=== PATIENT | female | born 1985 | race Caucasian/White ===

== ENCOUNTER 2019-06-08 14:37 | Emergency (ER) | payer OTHER, SELFPAY ==
[2019-06-08 14:55] VITALS: BP 147/107; PULSE 83; RESP 21; TEMP 36.8; O2SAT 93; BMI 39.4
[2019-06-08 15:18] LABS: Add Manual Diff / Slide Review NO; Basophils Absolute Auto 0 /uL (0-100); Basophils Percent Auto 0.2 % (0-2); Eosinophils Absolute Auto 0 /uL (0-450); Hematocrit 41.6 % (36-46); Hemoglobin 14.4 g/dL (12.0-16.0); Lymphocytes Absolute Auto 3300 /uL (1100-4500); Lymphocytes Percent Auto 39.2 % (25-40); Mean Corpuscular HGB Conc 34.6 % (30-36); Mean Corpuscular Hemoglobin 29.2 PG (26-34); Mean Corpuscular Volume 84.5 fL (80-100); Monocytes Absolute Auto 700 /uL (0-900); Monocytes Percent Auto 7.7 % (3-14); Neutrophils Absolute Auto 4500 /uL (1500-7000); Neutrophils Percent Auto 52.9 % (50-75); Platelet Count 328 X10^3/uL (150-400); Red Blood Cell Count 4.92 X10^6/uL (4.0-5.2); Red Cell Distribution Width 13.5 % (11.6-14.8); White Blood Cell Count 8.5 X10^3/uL (4.5-11.0)
[2019-06-08 15:30] LABS: Alanine Aminotransferase 19 IU/L (9-52); Albumin 4.2 g/dL (3.5-5.0); Albumin Globulin Ratio 1.2 (1.0-2.8); Alkaline Phosphatase 66 U/L (38-126); Aspartate Aminotransferase 20 IU/L (14-36); BUN Creatinine Ratio 15.7 (6-22); Bilirubin Total 0.5 mg/dL (0.2-1.3); Blood Urea Nitrogen 11 mg/dL (7-17); Calcium 8.9 mg/dL (8.4-10.2); Carbon Dioxide 21 mmol/L (22-32); Chloride 104 mmol/L (98-107); Estimated Glomerular Filt Rate > 60.0 mL/min (>60); Globulin 3.5 g/dL (1.7-4.1); Glucose 84 mg/dL (70-100); HEMOLYSIS < 15 (0-50); Lipase 21 U/L (23-300); Potassium 4.1 mmol/L (3.4-5.1); Sodium 136 mmol/L (137-145); Total Protein 7.7 g/dL (6.3-8.2)
[2019-06-08] MEDS: ONDANSETRON 4 MG/2 ML INJ IV (15:33)
--- NOTE | 2019-06-08 15:51 | DI.RAD.S_ITS ---
PROCEDURE: XR CHEST 2V INDICATIONS: abdomen pain, hx of asthma, productive cough TECHNIQUE: 2 views of the chest were acquired. COMPARISON: None. FINDINGS: Surgical changes and devices: Spinal electrodes Lungs and pleura: Lungs are clear. No pleural effusions or pneumothorax. Mediastinum: Mediastinal contours are normal. Heart size is normal. Bones and chest wall: No suspicious bony abnormalities. Soft tissues appear unremarkable. IMPRESSION: No acute disease. Dictated by: Ren Beasley M.D. on 06/08/2019 at 16:36 Approved by: Ren Beasley M.D. on 06/08/2019 at 16:37
[2019-06-08] MEDS: DICYCLOMINE 10 MG CAPSULE 20 MG PO (15:59)
[2019-06-08] MEDS: KETOROLAC 60 MG/2 ML VIAL 30 MG IV (16:00)
--- NOTE | 2019-06-08 22:28 | ED.FEMALEGU ---
HPI - Female Genitourinary <CAMILO Crump - Last Filed: 06/08/19 22:49> General Chief complaint: Urogenital-Female Stated complaint: lower right pain nausea Time Seen by Provider: 06/08/19 14:49 Source: patient Mode of arrival: ambulatory Limitations: no limitations History of Present Illness HPI Narrative: This is a 33-year-old female, smoker, with a history of asthma who presents with chief complain of right lower quadrant pain that had started 2 days ago. The patient reports frequent urination, dysuria, spotting small amount of blood when she wipes after voiding, right flank pain and odorous urine. She also complained of swelling to her lower extremities, nausea. Patient denies fever/chills. Patient reports there is no concerns for STIs. Reports decreased appetite. According to patient she was evaluated [facility] last night and had ultrasound done on her abdomen and pelvis which was negative. She reports she had given medications for bladder infection which she had not started. She reports that her pain is worse today and more constant. The past medical record from [facility] was requested after talking with patient. Related Data Home Medications Medication Instructions Recorded Confirmed albuterol sulfate 3 ml INHALATION PRN PRN 06/08/19 06/08/19 albuterol sulfate [ProAir HFA] 1 dose INHALATION PRN PRN 06/08/19 06/08/19 epinephrine [EpiPen 2-Alejandro] 0.3 ml IM PRN PRN 06/08/19 06/08/19 fluticasone propion-salmeterol 1 puff INHALATION BID 06/08/19 06/08/19 [Advair HFA] loratadine 10 mg PO DAILY 06/08/19 06/08/19 montelukast 10 mg PO DAILY 06/08/19 06/08/19 tiotropium bromide [Spiriva 1 puff INHALATION DAILY 06/08/19 06/08/19 Respimat] Allergies Allergy/AdvReac Type Severity Reaction Status Date / Time zolpidem [From Ambien] AdvReac Verified 06/08/19 14:58 Review of Systems <CAMILO Crump - Last Filed: 06/08/19 22:49> Review of Systems General: See HPI HEENT: Denies sinus pain, ear pain, sore throat, difficulty swallowing, dizziness. Respiratory: Denies dyspnea, cough, wheezing, hemoptysis, sputum. Cardiovascular: Denies chest pain, palpitations, orthopnea, edema. Gastrointestinal: See HPI : See HPI Musculoskeletal: Reports right flank pain and chronic left back pain. Denies weakness, joint pain or bony pain other areas. Skin: Denies rash, skin lesions, or other. Neurologic: Denies weakness, headache, numbness, change in speech, confusion, seizures, incoordination. Psychiatric: No concerning psychosocial issues. 12-point review of systems is negative except for those stated above. PFSH <CAMILO Crump - Last Filed: 06/08/19 22:49> Medical History (Updated 06/08/19 @ 22:37 by CAMILO Crump) Chronic back pain (Acute) Degenerative joint disease (DJD) of lumbar spine (Acute) Spinal cord stimulator status (Acute) Spinal stenosis (Acute) Endometriosis (Chronic) Surgical History (Updated 06/08/19 @ 22:37 by CAMILO Crump) H/O spinal fusion (Chronic) History of cholecystectomy (Chronic) S/P T&A (status post tonsillectomy and adenoidectomy) (Chronic) Social History Smoking Status: Current every day smoker Social History Smoking Status: Current every day smoker Exam <CAMILO Crump - Last Filed: 06/08/19 22:49> Narrative Exam Narrative: GEN: Alert, oriented x 3, well appearing and nourished, and in no acute distress. Head: Normal cephalic, atraumatic. No scalp or temporal tenderness, palpable mass or rash. EYES: Pupils are equal, round, and reactive to light and accommodation. Extraocular muscles are intact bilaterally. There is no subconjunctival hemorrhage, exudate and sclera non-icteric. ENT: Hearing grossly intact. Nose without bleeding, purulent discharge. Mucous membrane moist, no mucosal lesion. Throat without erythema, tonsillar hypertrophy or exudate. Uvula in midline, airway patent. Neck: Trachea in midline. No JVD, non-tender without lymphadenopathy. No masses or thyroid megaly. Supple, non-tender and no meningeal signs. CARDIAC: Normal regular rate and rhythm without murmurs, gallops, or rubs. No chest wall tenderness. No peripheral edema, cyanosis or pallor. Capillary refill is less than 2 seconds. RESPIRATORY: Faint wheezing throughout all lobes. No cough, rales, or rhonchi. No stridor, respiratory distress, increase work of breathing, or accessary muscle used. ABD: R upper abdomen and RLQ tender to palpate. Abdomen soft and non-distended. No guarding or rebound tenderness to palpate. Bowel sounds are normal in all 4 quadrants. There is no palpable masses or organomegaly. EXT: Full painless ROM of all extremities with no loss of sensation, strength, effusion or no pitting edema noted in lower extremities. SKIN: Warm, dry, normal color for patient. No erythema, lesions or rash over visible areas. BACK: Nontender without deformity or crepitance. Reports R CVA tenderness to percuss. NEUROLOGICAL: Alert and oriented to place, time and person. Sensation and motor function intact bilaterally. No facial droops, dysphasia. PSYCHIATRIC: Good judgement and reason, without hallucinations, abnormal affect or abnormal behaviors during the examination. Patient is not suicidal. Initial Vital Signs Initial Vital Signs: Vital Signs Temperature 98.3 F 06/08/19 14:55 Pulse Rate 83 06/08/19 14:55 Respiratory Rate 21 06/08/19 14:55 Blood Pressure 147/107 H 06/08/19 14:55 Pulse Oximetry 93 06/08/19 14:55 <Flower Rivas DO - Last Filed: 06/09/19 08:23> Initial Vital Signs Initial Vital Signs: Vital Signs Temperature 98.3 F 06/08/19 14:55 Pulse Rate 83 06/08/19 14:55 Respiratory Rate 21 06/08/19 14:55 Blood Pressure 147/107 H 06/08/19 14:55 Pulse Oximetry 93 06/08/19 14:55 Course <CAMILO Crump - Last Filed: 06/08/19 22:49> Orders Ordered: Discontinued Medications Dicyclomine HCl (Bentyl) 20 mg PO NOW ONE Stop: 06/08/19 15:45 Last Admin: 06/08/19 15:59 Dose: 20 mg Ketorolac Tromethamine (Toradol) 30 mg IV NOW ONE Stop: 06/08/19 15:45 Last Admin: 06/08/19 16:00 Dose: 30 mg Ondansetron HCl (Zofran) 4 mg IV NOW ONE Stop: 06/08/19 15:06 Last Admin: 06/08/19 15:33 Dose: 4 mg Vital Signs - 8 hr 06/08/19 14:55 Temperature 98.3 F Pulse Rate 83 Respiratory Rate 21 Blood Pressure 147/107 H Pulse Oximetry 93 <Flower Rivas DO - Last Filed: 06/09/19 08:23> Orders Ordered: Discontinued Medications Dicyclomine HCl (Bentyl) 20 mg PO NOW ONE Stop: 06/08/19 15:45 Last Admin: 06/08/19 15:59 Dose: 20 mg Ketorolac Tromethamine (Toradol) 30 mg IV NOW ONE Stop: 06/08/19 15:45 Last Admin: 06/08/19 16:00 Dose: 30 mg Ondansetron HCl (Zofran) 4 mg IV NOW ONE Stop: 06/08/19 15:06 Last Admin: 06/08/19 15:33 Dose: 4 mg Vital Signs - 8 hr 06/08/19 14:55 Temperature 98.3 F Pulse Rate 83 Respiratory Rate 21 Blood Pressure 147/107 H Pulse Oximetry 93 MDM - Female Genitourinary <CAMILO Crump - Last Filed: 06/08/19 22:49> Differential Diagnosis Likely urinary tract infection and other (kidney infection, appendicitis, oavarian cyst) Medical Records Attestation: I reviewed the patient's medical records. Lab Data Attestation: I reviewed the patient's lab results. Result diagrams: 06/08/19 15:05 06/08/19 15:05 Lab Results 06/08/19 06/08/19 Range/Units 15:05 15:05 WBC 8.5 (4.5-11.0) X10^3/uL RBC 4.92 (4.0-5.2) X10^6/uL Hgb 14.4 (12.0-16.0) g/dL Hct 41.6 (36-46) % MCV 84.5 (80-100) fL MCH 29.2 (26-34) PG MCHC 34.6 (30-36) % RDW 13.5 (11.6-14.8) % Plt Count 328 (150-400) X10^3/uL Neut % (Auto) 52.9 (50-75) % Lymph % (Auto) 39.2 (25-40) % Barnes % (Auto) 7.7 (3-14) % Eos % (Auto) 0.0 L (2-4) % Baso % (Auto) 0.2 (0-2) % Neut # (Auto) 4500 (5361-0186) /uL Lymph # (Auto) 3300 (8548-5016) /uL Barnes # (Auto) 700 (0-900) /uL Eos # (Auto) 0 (0-450) /uL Baso # (Auto) 0 (0-100) /uL Sodium 136 L (137-145) mmol/L Potassium 4.1 (3.4-5.1) mmol/L Chloride 104 (98-107) mmol/L Carbon Dioxide 21 L (22-32) mmol/L BUN 11 (7-17) mg/dL Creatinine 0.70 (0.52-1.04) mg/dL Estimated GFR > 60.0 (>60) mL/min BUN/Creatinine Ratio 15.7 (6-22) Glucose 84 (70-100) mg/dL Calcium 8.9 (8.4-10.2) mg/dL Total Bilirubin 0.5 (0.2-1.3) mg/dL AST 20 (14-36) IU/L ALT 19 (9-52) IU/L Alkaline Phosphatase 66 (38-126) U/L Total Protein 7.7 (6.3-8.2) g/dL Albumin 4.2 (3.5-5.0) g/dL Globulin 3.5 (1.7-4.1) g/dL Albumin/Globulin Ratio 1.2 (1.0-2.8) Lipase 21 L (23-300) U/L Point of Care Testing Test Results Negative Urine Dip Bedside Urine Glucose Negative Bedside Urine Bilirubin - Negative Bedside Urine Ketone - Negative Urine Specific [place] 1.015 Bedside Urine Occult Blood +/- Bedside Urine pH 6.0 Bedside Urine Protein - Negative Bedside Urine Urobilinogen - Negative Bedside Urine Nitrite - Negative Bedside Urine Leukocytes - Negative Esterase MDM Narrative Medical decision making narrative: This is a 33-year-old female came in with right lower quadrant pain and right flank pain with urinary symptoms. I received the patient's past medical record from [facility] from last night. The record indicates unremarkable findings per abdominal pelvis ultrasound and she also had CT of abdomen and pelvis. Her urine was not infectious but she was diagnosed with Pyridium for urinary discomfort which she had not used. Her lab test was unremarkable. She was discharged with Percocet and Zofran for pain management and nausea. Today's blood test also unremarkable for CBC and CMP including lipase. The patient reports due to her asthma problem she has productive cough daily. Chest x-ray with negative findings today. I discussed with patient in length that since she had extensive workup done last night additional ultrasound or CT scan are being deferred due to extensive radiation exposure from CT test with unremarkable blood test. Patient was medicated with IV Toradol are, Zofran, and oral Bentyl while in ED. Patient reports her nausea has improved and as well as discomfort. Return precautions were discussed with the patient and patient was advised to follow with her primary care physician. The patient agrees with treatment plan and informed the cause for her abdominal pain is not evident. <Flower Rivas, DO - Last Filed: 06/09/19 08:23> Lab Data Lab Results 06/08/19 06/08/19 Range/Units 15:05 15:05 WBC 8.5 (4.5-11.0) X10^3/uL RBC 4.92 (4.0-5.2) X10^6/uL Hgb 14.4 (12.0-16.0) g/dL Hct 41.6 (36-46) % MCV 84.5 (80-100) fL MCH 29.2 (26-34) PG MCHC 34.6 (30-36) % RDW 13.5 (11.6-14.8) % Plt Count 328 (150-400) X10^3/uL Neut % (Auto) 52.9 (50-75) % Lymph % (Auto) 39.2 (25-40) % Barnes % (Auto) 7.7 (3-14) % Eos % (Auto) 0.0 L (2-4) % Baso % (Auto) 0.2 (0-2) % Neut # (Auto) 4500 (8894-5879) /uL Lymph # (Auto) 3300 (6947-9840) /uL Barnes # (Auto) 700 (0-900) /uL Eos # (Auto) 0 (0-450) /uL Baso # (Auto) 0 (0-100) /uL Sodium 136 L (137-145) mmol/L Potassium 4.1 (3.4-5.1) mmol/L Chloride 104 (98-107) mmol/L Carbon Dioxide 21 L (22-32) mmol/L BUN 11 (7-17) mg/dL Creatinine 0.70 (0.52-1.04) mg/dL Estimated GFR > 60.0 (>60) mL/min BUN/Creatinine Ratio 15.7 (6-22) Glucose 84 (70-100) mg/dL Calcium 8.9 (8.4-10.2) mg/dL Total Bilirubin 0.5 (0.2-1.3) mg/dL AST 20 (14-36) IU/L ALT 19 (9-52) IU/L Alkaline Phosphatase 66 (38-126) U/L Total Protein 7.7 (6.3-8.2) g/dL Albumin 4.2 (3.5-5.0) g/dL Globulin 3.5 (1.7-4.1) g/dL Albumin/Globulin Ratio 1.2 (1.0-2.8) Lipase 21 L (23-300) U/L Point of Care Testing Test Results Negative Urine Dip Bedside Urine Glucose Negative Bedside Urine Bilirubin - Negative Bedside Urine Ketone - Negative Urine Specific [place] 1.015 Bedside Urine Occult Blood +/- Bedside Urine pH 6.0 Bedside Urine Protein - Negative Bedside Urine Urobilinogen - Negative Bedside Urine Nitrite - Negative Bedside Urine Leukocytes - Negative Esterase Discharge Plan Departure Patient Disposition: Home Clinical Impression: Nausea Abdominal pain Qualifiers: Abdominal location: right lower quadrant Qualified Code(s): R10.31 - Right lower quadrant pain Discharge Date/Time: 06/08/19 17:46 Interventions: ED Discharge Assessment Last Done: 06/08/19 17:44 Instructions: DI for Abdominal Pain-Adult, DI for Nausea -- Adult Activity Restrictions/Additional Instructions: You have been diagnosed with [abdominal pain and nausea. You're blood test today looks unremarkable. Urine test does not indicate you have an infection but very small amount of occult blood and negative for . You just had CT scan on the abdomen and pelvis and ultrasound under abdomen yesterday at [facility] Emergency Room with negative findings]. What to do: *Take your medications as directed. Please take the medications that were prescribed yesterday from [facility] for nausea/vomiting, abdominal pain as needed. The pain medication you have prescribed yesterday could cause drowsiness and constipation so please take precaution. *Follow up with your primary care provider in 2-3 days, call for an appointment. Let them know you were seen in the ED and that we asked you to be seen in follow up. *Return to ED if you have any new, worsening, or concerning symptoms, such as [increasing severe pain, fever/chills, unable to tolerate fluids, chest pain, breathing difficulty, any acute concerns]. Prescriptions: No Action albuterol sulfate 2.5 mg /3 mL (0.083 %) solution for nebulization 3 ml inhalation PRN PRN (Reason: Shortness Of Breath) RF: 0 montelukast 10 mg tablet 10 mg PO DAILY RF: 0 epinephrine [EpiPen 2-Alejandro] 0.3 mg/0.3 mL auto-injector 0.3 ml IM PRN PRN (Reason: Allergic Reaction) RF: 0 albuterol sulfate [ProAir HFA] 90 mcg/actuation HFA aerosol inhaler 1 dose inhalation PRN PRN (Reason: Shortness Of Breath) RF: 0 loratadine 10 mg tablet 10 mg PO DAILY RF: 0 Advair HFA 230-21 mcg/actuation HFA aerosol inhaler 1 puff inhalation BID RF: 0 Spiriva Respimat 1.25 mcg/actuation mist 1 puff inhalation DAILY RF: 0 Referrals: [facility] [Outside] <Flower Rivas, DO - Last Filed: 06/09/19 08:23> Cosign ED Attending Carl Attestation: I was immediately available in the department for consultation. Documentation has been reviewed. I agree with assessment and plan.
--- NOTE | 2019-06-08 22:49 | ED_ITS ---
HPI - Female Genitourinary <CAMILO Crump - Last Filed: 06/08/19 22:49> General Chief complaint: Urogenital-Female Stated complaint: lower right pain nausea Time Seen by Provider: 06/08/19 14:49 Source: patient Mode of arrival: ambulatory Limitations: no limitations History of Present Illness HPI Narrative: This is a 33-year-old female, smoker, with a history of asthma who presents with chief complain of right lower quadrant pain that had started 2 days ago. The patient reports frequent urination, dysuria, spotting small amount of blood when she wipes after voiding, right flank pain and odorous urine. She also complained of swelling to her lower extremities, nausea. Patie nt denies fever/chills. Patient reports there is no concerns for STIs. Reports decreased appetite. According to patient she was evaluated [facility] last night and had ultrasound done on her abdomen and pelvis which was negative. She reports she had given medications for bladder infection which she had not started. She reports that her pain is worse today and more constant. The past medical record from [facility] was requested after talking with patient. Related Data Home Medications Medication Instructions Recorded Confirmed albuterol sulfate 3 ml INHALATION PRN PRN 06/08/19 06/08/19 albuterol sulfate [ProAir HFA] 1 dose INHALATION PRN PRN 06/08/19 06/08/19 epinephrine [EpiPen 2-Alejandro] 0.3 ml IM PRN PRN 06/08/19 06/08/19 fluticasone propion-salmeterol 1 puff INHALATION BID 06/08/19 06/08/19 [Advair HFA] loratadine 10 mg PO DAILY 06/08/19 06/08/19 montelukast 10 mg PO DAILY 06/08/19 06/08/19 tiotropium bromide [Spiriva 1 puff INHALATION DAILY 06/08/19 06/08/19 Respimat] Allergies Allergy/AdvReac Type Severity Reaction Status Date / Time zolpidem [From Ambien] AdvReac Verified 06/08/19 14:58 Review of Systems <CAMILO Crump - Last Filed: 06/08/19 22:49> Review of Systems General: See HPI HEENT: Denies sinus pain, ear pain, sore throat, difficulty swallowing, dizziness. Respiratory: Denies dyspnea, cough, wheezing, hemoptysis, sputum. Cardiovascular: Denies chest pain, palpitations, orthopnea, edema. Gastrointestinal: See HPI : See HPI Musculoskeletal: Reports right flank pain and chronic left back pain. Denies w eakness, joint pain or bony pain other areas. Skin: Denies rash, skin lesions, or other. Neurologic: Denies weakness, headache, numbness, change in speech, confusion, seizures, incoordination. Psychiatric: No concerning psychosocial issues. 12-point review of systems is negative except for those stated above. PFSH <CAMILO Crump - Last Filed: 06/08/19 22:49> Medical History (Updated 06/08/19 @ 22:37 by CAMILO Crump) Chronic back pain (Acute) Degenerative joint disease (DJD) of lumbar spine (Acute) Spinal cord stimulator status (Acute) Spinal stenosis (Acute) Endometriosis (Chronic) Surgical History (Updated 06/08/19 @ 22:37 by CAMILO Crump) H/O spinal fusion (Chronic) History of cholecystectomy (Chronic) S/P T&A (status post tonsillectomy and adenoidectomy) (Chronic) Social History Smoking Status: Current every day smoker Social History Smoking Status: Current every day smoker Exam <CAMILO Crump - Last Filed: 06/08/19 22:49> Narrative Exam Narrative: GEN: Alert, oriented x 3, well appearing and nourished, and in no acute distress. Head: Normal cephalic, atraumatic. No scalp or temporal tenderness, palpable mass or rash. EYES: Pupils are equal, round, and reactive to light and accommodation. Extraocular muscles are intact bilaterally. There is no subconjunctival hemorrhage, exudate and sclera non-icteric. ENT: Hearing grossly intact. Nose without bleeding, purulent discharge. Mucous membrane moist, no mucosal lesion. Throat without erythema, tonsillar hypertrophy or exudate. Uvula in midline, airway patent. Neck: Trachea in midline. No JVD, non-tender without lymphadenopathy. No masses or thyroid megaly. Supple, non-tender and no meningeal signs. CARDIAC: Normal regular rate and rhythm without murmurs, gallops, or rubs. No chest wall tenderness. No peripheral edema, cyanosis or pallor. Capillary refill is less than 2 seconds. RESPIRATORY: Faint wheezing throughout all lobes. No cough, rales, or rhonchi. No stridor, respiratory distress, increase work of breathing, or accessary muscle used. ABD: R upper abdomen and RLQ tender to palpate. Abdomen soft and non-distended. No guarding or rebound tenderness to palpate. Bowel sounds are normal in all 4 quadrants. There is no palpable masses or organomegaly. EXT: Full painless ROM of all extremities with no loss of sensation, strength, effusion or no pitting edema noted in lower extremities. SKIN: Warm, dry, normal color for patient. No erythema, lesions or rash over visible areas. BACK: Nontender without deformity or crepitance. Reports R CVA tenderness to percuss. NEUROLOGICAL: Alert and oriented to place, time and person. Sensation and motor function intact bilaterally. No facial droops, dysphasia. PSYCHIATRIC: Good judgement and reason, without hallucinations, abnormal affect or abnormal behaviors during the examination. Patient is not suicidal. Initial Vital Signs Initial Vital Signs: Vital Signs Temperature 98.3 F 06/08/19 14:55 Pulse Rate 83 06/08/19 14:55 Respiratory Rate 21 06/08/19 14:55 Blood Pressure 147/107 H 06/08/19 14:55 Pulse Oximetry 93 06/08/19 14:55 <Flower Rivas DO - Last Filed: 06/09/19 08:23> Initial Vital Signs Initial Vital Signs: Vital Signs Temperature 98.3 F 06/08/19 14:55 Pulse Rate 83 06/08/19 14:55 Respiratory Rate 21 06/08/19 14:55 Blood Pressure 147/107 H 06/08/19 14:55 Pulse Oximetry 93 06/08/19 14:55 Course <CAMILO Crump - Last Filed: 06/08/19 22:49> Orders Ordered: Discontinued Medications Dicyclomine HCl (Bentyl) 20 mg PO NOW ONE Stop: 06/08/19 15:45 Last Admin: 06/08/19 15:59 Dose: 20 mg Ketorolac Tromethamine (Toradol) 30 mg IV NOW ONE Stop: 06/08/19 15:45 Last Admin: 06/08/19 16:00 Dose: 30 mg Ondansetron HCl (Zofran) 4 mg IV NOW ONE Stop: 06/08/19 15:06 Last Admin: 06/08/19 15:33 Dose: 4 mg Vital Signs - 8 hr 06/08/19 14:55 Temperature 98.3 F Pulse Rate 83 Respiratory Rate 21 Blood Pressure 147/107 H Pulse Oximetry 93 <Flower Rivas DO - Last Filed: 06/09/19 08:23> Orders Ordered: Discontinued Medications Dicyclomine HCl (Bentyl) 20 mg PO NOW ONE Stop: 06/08/19 15:45 Last Admin: 06/08/19 15:59 Dose: 20 mg Ketorolac Tromethamine (Toradol) 30 mg IV NOW ONE Stop: 06/08/19 15:45 Last Admin: 06/08/19 16:00 Dose: 30 mg Ondansetron HCl (Zofran) 4 mg IV NOW ONE Stop: 06/08/19 15:06 Last Admin: 06/08/19 15:33 Dose: 4 mg Vital Signs - 8 hr 06/08/19 14:55 Temperature 98.3 F Pulse Rate 83 Respiratory Rate 21 Blood Pressure 147/107 H Pulse Oximetry 93 MDM - Female Genitourinary <CAMILO Crump - Last Filed: 06/08/19 22:49> Differential Diagnosis Likely urinary tract infection and other (kidney infection, appendicitis, oavarian cyst) Medical Records Attestation: I reviewed the patient's medical records. Lab Data Attestation: I reviewed the patient's lab results. Result diagrams: 06/08/19 15:05 06/08/19 15:05 Lab Results 06/08/19 06/08/19 Range/Units 15:05 15:05 WBC 8.5 (4.5-11.0) X10^3/uL RBC 4.92 (4.0-5.2) X10^6/uL Hgb 14.4 (12.0-16.0) g/dL Hct 41.6 (36-46) % MCV 84.5 (80-100) fL MCH 29.2 (26-34) PG MCHC 34.6 (30-36) % RDW 13.5 (11.6-14.8) % Plt Count 328 (150-400) X10^3/uL Neut % (Auto) 52.9 (50-75) % Lymph % (Auto) 39.2 (25-40) % Whiteside % (Auto) 7.7 (3-14) % Eos % (Auto) 0.0 L (2-4) % Baso % (Auto) 0.2 (0-2) % Neut # (Auto) 4500 (4003-5208) /uL Lymph # (Auto) 3300 (1225-3369) /uL Whiteside # (Auto) 700 (0-900) /uL Eos # (Auto) 0 (0-450) /uL Baso # (Auto) 0 (0-100) /uL Sodium 136 L (137-145) mmol/L Potassium 4.1 (3.4-5.1) mmol/L Chloride 104 (98-107) mmol/L Carbon Dioxide 21 L (22-32) mmol/L BUN 11 (7-17) mg/dL Creatinine 0.70 (0.52-1.04) mg/dL Estimated GFR > 60.0 (>60) mL/min BUN/Creatinine Ratio 15.7 (6-22) Glucose 84 (70-100) mg/dL Calcium 8.9 (8.4-10.2) mg/dL Total Bilirubin 0.5 (0.2-1.3) mg/dL AST 20 (14-36) IU/L ALT 19 (9-52) IU/L Alkaline Phosphatase 66 (38-126) U/L Total Protein 7.7 (6.3-8.2) g/dL Albumin 4.2 (3.5-5.0) g/dL Globulin 3.5 (1.7-4.1) g/dL Albumin/Globulin Ratio 1.2 (1.0-2.8) Lipase 21 L (23-300) U/L Point of Care Testing Test Results Negative Urine Dip Bedside Urine Glucose Negative Bedside Urine Bilirubin - Negative Bedside Urine Ketone - Negative Urine Specific [place] 1.015 Bedside Urine Occult Blood +/- Bedside Urine pH 6.0 Bedside Urine Protein - Negative Bedside Urine Urobilinogen - Negative Bedside Urine Nitrite - Negative Bedside Urine Leukocytes - Negative Esterase MDM Narrative Medical decision making narrative: This is a 33-year-old female came in with right lower quadrant pain and right flank pain with urinary symptoms. I received the patient's past medical record from [facility] from last night. The record indicates unremarkable findings per abdominal pelvis ultrasound and she also had CT of abdomen and pelvis. Her urine was not infectious but she was diagnosed with Pyridium for urinary discomfort which she had not used. Her lab test was unremarkable. She was discharged with Percocet and Zofran for pain management and nausea. Today's blood test also unremarkable for CBC and CMP including lipase. The patient reports due to her asthma problem she has productive cough daily. Chest x-ray with negative findings today. I discussed with patient in length that since she had extensive workup done last night lyndsay tional ultrasound or CT scan are being deferred due to extensive radiation exposure from CT test with unremarkable blood test. Patient was medicated with IV Toradol are, Zofran, and oral Bentyl while in ED. Patient reports her nausea has improved and as well as discomfort. Return precautions were discussed with the patient and patient was advised to follow with her primary care physician. The patient agrees with treatment plan and informed the cause for her abdominal pain is not evident. <Flower Rivas, DO - Last Filed: 06/09/19 08:23> Lab Data Lab Results 06/08/19 06/08/19 Range/Units 15:05 15:05 WBC 8.5 (4.5-11.0) X10^3/uL RBC 4.92 (4.0-5.2) X10^6/uL Hgb 14.4 (12.0-16.0) g/dL Hct 41.6 (36-46) % MCV 84.5 (80-100) fL MCH 29.2 (26-34) PG MCHC 34.6 (30-36) % RDW 13.5 (11.6-14.8) % Plt Count 328 (150-400) X10^3/uL Neut % (Auto) 52.9 (50-75) % Lymph % (Auto) 39.2 (25-40) % Whiteside % (Auto) 7.7 (3-14) % Eos % (Auto) 0.0 L (2-4) % Baso % (Auto) 0.2 (0-2) % Neut # (Auto) 4500 (2476-2203) /uL Lymph # (Auto) 3300 (8014-2426) /uL Whiteside # (Auto) 700 (0-900) /uL Eos # (Auto) 0 (0-450) /uL Baso # (Auto) 0 (0-100) /uL Sodium 136 L (137-145) mmol/L Potassium 4.1 (3.4-5.1) mmol/L Chloride 104 (98-107) mmol/L Carbon Dioxide 21 L (22-32) mmol/L BUN 11 (7-17) mg/dL Creatinine 0.70 (0.52-1.04) mg/dL Estimated GFR > 60.0 (>60) mL/min BUN/Creatinine Ratio 15.7 (6-22) Glucose 84 (70-100) mg/dL Calcium 8.9 (8.4-10.2) mg/dL Total Bilirubin 0.5 (0.2-1.3) mg/dL AST 20 (14-36) IU/L ALT 19 (9-52) IU/L Alkaline Phosphatase 66 (38-126) U/L Total Protein 7.7 (6.3-8.2) g/dL Albumin 4.2 (3.5-5.0) g/dL Globulin 3.5 (1.7-4.1) g/dL Albumin/Globulin Ratio 1.2 (1.0-2.8) Lipase 21 L (23-300) U/L Point of Care Testing Test Results Negative Urine Dip Bedside Urine Glucose Negative Bedside Urine Bilirubin - Negative Bedside Urine Ketone - Negative Urine Specific [place] 1.015 Bedside Urine Occult Blood +/- Bedside Urine pH 6.0 Bedside Urine Protein - Negative Bedside Urine Urobilinogen - Negative Bedside Urine Nitrite - Negative Bedside Urine Leukocytes - Negative Esterase Discharge Plan Departure Patient Disposition: Home Clinical Impression: Nausea Abdominal pain Qualifiers: Abdominal location: right lower quadrant Qualified Code(s): R10.31 - Right lower quadrant pain Discharge Date/Time: 06/08/19 17:46 Interventions: ED Discharge Assessment Last Done: 06/08/19 17:44 Instructions: DI for Abdominal Pain-Adult, DI for Nausea -- Adult Activity Restrictions/Additional Instructions: You have been diagnosed with [abdominal pain and nausea. You're blood test today looks unremarkable. Urine test does not indicate you have an infection but very small amount of occult blood and negative for . You just had CT scan on the abdomen and pelvis and ultrasound under abdomen yesterday at [facility] Emergency Room with negative findings]. What to do: *Take your medications as directed. Please take the medications that were prescribed yesterday from [facility] for nausea/vomiting, abdominal pain as needed. The pain medication you have prescribed yesterday could cause drowsiness and constipation so please take precaution. *Follow up with your primary care provider in 2-3 days, call for an appointment. Let them know you were seen in the ED and that we asked you to be seen in follow up. *Return to ED if you have any new, worsening, or concerning symptoms, such as [increasing severe pain, fever/chills, unable to tolerate fluids, chest pain, breathing difficulty, any acute concerns]. Prescriptions: No Action albuterol sulfate 2.5 mg /3 mL (0.083 %) solution for nebulization 3 ml inhalation PRN PRN (Reason: Shortness Of Breath) RF: 0 montelukast 10 mg tablet 10 mg PO DAILY RF: 0 epinephrine [EpiPen 2-Alejandro] 0.3 mg/0.3 mL auto-injector 0.3 ml IM PRN PRN (Reason: Allergic Reaction) RF: 0 albuterol sulfate [ProAir HFA] 90 mcg/actuation HFA aerosol inhaler 1 dose inhalation PRN PRN (Reason: Shortness Of Breath) RF: 0 loratadine 10 mg tablet 10 mg PO DAILY RF: 0 Advair HFA 230-21 mcg/actuation HFA aerosol inhaler 1 puff inhalation BID RF: 0 Spiriva Respimat 1.25 mcg/actuation mist 1 puff inhalation DAILY RF: 0 Referrals: [facility] [Outside] <Flower Rivas DO - Last Filed: 06/09/19 08:23> Cosign ED Attending Carl Attestation: I was immediately available in the department for consultation. Documentation has been reviewed. I agree with assessment and plan.
== END 2019-06-08 17:46 | disposition home or self-care (01) ==
PROVIDERS: Emergency Provider Nurse Practitioner Family
DX: R10.31 Right lower quadrant pain (principal); R11.0 Nausea
CPT/HCPCS: 36591; 71046; 80053; 81003; 81025; 83690; 85025; 96374; 96375; 99282; 99284; J1885; J2405

== ENCOUNTER 2019-07-12 18:43 | Emergency (ER) | payer OTHER, SELFPAY ==
[2019-07-12 19:09] VITALS: TEMP 36.6
[2019-07-12] MEDS: IBUPROFEN 400 MG TABLET PO (20:34)
--- NOTE | 2019-07-12 20:37 | ED_ITS ---
HPI - Wound/Laceration <CAMILO Crump - Last Filed: 07/12/19 21:19> General Chief Complaint: Wound/Laceration Stated Complaint: Cut Thumb Time Seen by Provider: 07/12/19 20:10 Source: patient Mode of arrival: Ambulatory Limitations: no limitations History of Present Illness HPI narrative: This is a 33-year-old female, smoker, who presents with significant other with chief complain of left thumb laceration from a knife when she was chopping about cabbage 2 hours ago. The patient's right dominant hand. Unsure of last tetanus immunization. Patient complain of discomfort when p alpated on affected finger. Related Data Home Medications Medication Instructions Recorded Confirmed albuterol sulfate 3 ml INHALATION PRN PRN 06/08/19 06/08/19 albuterol sulfate [ProAir HFA] 1 dose INHALATION PRN PRN 06/08/19 06/08/19 epinephrine [EpiPen 2-Alejandro] 0.3 ml IM PRN PRN 06/08/19 06/08/19 fluticasone propion-salmeterol 1 puff INHALATION BID 06/08/19 06/08/19 [Advair HFA] loratadine 10 mg PO DAILY 06/08/19 06/08/19 montelukast 10 mg PO DAILY 06/08/19 06/08/19 tiotropium bromide [Spiriva 1 puff INHALATION DAILY 06/08/19 06/08/19 Respimat] Allergies Allergy/AdvReac Type Severity Reaction Status Date / Time zolpidem [From Ambien] AdvReac Verified 06/08/19 14:58 Review of Systems <CAMILO Crump - Last Filed: 07/12/19 21:19> Review of Systems ROS Unobtainable: All systems reviewed & are unremarkable except as noted in HPI and below PFSH <CAMILO Crump - Last Filed: 07/12/19 21:19> Medical History Chronic back pain (Acute) Degenerative joint disease (DJD) of lumbar spine (Acute) Endometriosis (Chronic) Spinal cord stimulator status (Acute) Spinal stenosis (Acute) Surgical History H/O spinal fusion (Chronic) History of cholecystectomy (Chronic) S/P T&A (status post tonsillectomy and adenoidectomy) (Chronic) Social History Smoking Status: Current every day smoker Social History Smoking Status: Current every day smoker Exam <CAMILO Crump - Last Filed: 07/12/19 21:19> Narrative Exam Narrative: General appearance: well developed, well nourished, in no acute distress. Head: normocephalic, atraumatic, no scalp lesions, non-tender. Eye: pupil equal, round. EOMI. Nose: nares patent. Oral: mucosa moist. Neck/Thyroid: neck supple, full range of motion, no visible masses. Skin: Less than 1 cm laceration to left distal thumb pad. Slow bleeding. no suspicious rashes, lesions over other visible areas. Warm and dry. Heart: no clubbing, no cyanosis, no edema. Lungs: Lung sounds clear bilaterally. Breathing even and unlabored. No stridor. No accessory muscles used. Chest: normal shape and expansion. Abdomen: non-obese, non-distended. Neurologic: alert and oriented. Cognitive exam, REMOTE ADVISOR and PNS grossly intact on informal exam. Psych: good eye contact, normal affect. Initial Vital Signs Initial Vital Signs: Vital Signs Temperature 97.8 F 07/12/19 19:09 <Everett Holguin DO - Last Filed: 07/12/19 22:56> Initial Vital Signs Initial Vital Signs: Vital Signs Temperature 97.8 F 07/12/19 19:09 Scores <CAMILO Crump - Last Filed: 07/12/19 21:19> GCS [place] coma scale eye opening: Spontaneous [place] coma scale verbal response: Orientated [place] coma scale motor response: Obey commands Geoffrey coma scale total score: 15 Course <CAMILO Crump - Last Filed: 07/12/19 21:19> Orders Ordered: Discontinued Medications Diphtheria/Tetanus/Acell Pertussis (Adacel) 0.5 ml IM .ONCE ONE Stop: 07/12/19 20:53 Last Admin: 07/12/19 21:06 Dose: 0.5 ml Documented by: CLINT Ibuprofen (Advil) 400 mg PO NOW ONE Stop: 07/12/19 20:24 Last Admin: 07/12/19 20:34 Dose: 400 mg Documented by: CLINT Vital Signs Vital signs: Vital Signs - 8 hr 07/12/19 19:09 07/12/19 20:41 Temperature 97.8 F Pulse Rate 71 Respiratory Rate 16 Blood Pressure [Right Arm] 130/86 Pulse Oximetry 97 <Everett Holguin DO - Last Filed: 07/12/19 22:56> Orders Ordered: Discontinued Medications Diphtheria/Tetanus/Acell Pertussis (Adacel) 0.5 ml IM .ONCE ONE Stop: 07/12/19 20:53 Last Admin: 07/12/19 21:06 Dose: 0.5 ml Documented by: CLINT Ibuprofen (Advil) 400 mg PO NOW ONE Stop: 07/12/19 20:24 Last Admin: 07/12/19 20:34 Dose: 400 mg Documented by: CLINT Vital Signs Vital signs: Vital Signs - 8 hr 07/12/19 19:09 07/12/19 20:41 Temperature 97.8 F Pulse Rate 71 Respiratory Rate 16 Blood Pressure [Right Arm] 130/86 Pulse Oximetry 97 [facility] - Wound/Laceration <CAMILO Crump - Last Filed: 07/12/19 21:19> Differential Diagnosis Differential diagnosis: Likely laceration Medical Records Attestation: I reviewed the patient's medical records. [facility] Narrative Medical decision making narrative: This patient has sustain a small laceration on left thumb pad from a kitchen knife. She is able to move the affected finger against resistance. Left radial pulse and sensations are intact. Small superficial laceration on left thumb has been soaked in Hibiclens water. Laceration has been repaired with Dermabond and Steri-Strips to reinforce. The affected finger was dressed with bulky dressing. Patient's tetanus has been updated today with Tdap. Patient was medicated with Motrin for discomfort. Return precautions such as signs and symptoms for infections were discussed with patient and spouse. No further questions were expressed and advised to follow up with primary care physician in several days. Discharge Plan Departure Patient Disposition: Home Clinical Impression: Laceration Discharge Date/Time: 07/12/19 21:14 Instructions: DI for Laceration Repair Activity Restrictions/Additional Instructions: You have been diagnosed with [left thumb small laceration from a knife which has been repaired with Dermabond and Steri-Strips to reinforce]. What to do: *Take your medications as directed. You can take [id number] Tylenol and Motrin as needed for discomfort. Please do not get your wound soaked in the water until the laceration has healed. Keep your dressing intact for next 24 hrs. After then, you could remove your dressing, wash with soap and water. Pat dry with clean papertowel and dress it. Please avoid using oil based ointment, cream, lotion and etc since this may make dermabond lose and remove prematurely. Dermabond and Steri- Strips will come off in 5-7 days on its own. Do not peel this off or pick on it. You can change dressing as needed and daily. Please monitor for signs and symptoms for infection such as increasing redness, swelling, warmth, pain, fever, purulent discharge. If this occurs, please return to ED or follow up with your primary care physician since your wound may be infected. Please follow up with your primary care provider in 2-3 days for recheck wound. Please keep your wound clean, dry and intact all times. Prescriptions: No Action albuterol sulfate 2.5 mg /3 mL (0.083 %) solution for nebulization 3 ml inhalation PRN PRN (Reason: Shortness Of Breath) RF: 0 montelukast 10 mg tablet 10 mg PO DAILY RF: 0 epinephrine [EpiPen 2-Alejandro] 0.3 mg/0.3 mL auto-injector 0.3 ml IM PRN PRN (Reason: Allergic Reaction) RF: 0 albuterol sulfate [ProAir HFA] 90 mcg/actuation HFA aerosol inhaler 1 dose inhalation PRN PRN (Reason: Shortness Of Breath) RF: 0 loratadine 10 mg tablet 10 mg PO DAILY RF: 0 Advair HFA 230-21 mcg/actuation HFA aerosol inhaler 1 puff inhalation BID RF: 0 Spiriva Respimat 1.25 mcg/actuation mist 1 puff inhalation DAILY RF: 0 Referrals: Chong Snell CNP [Primary Care Provider] - <Everett Holguin DO - Last Filed: 07/12/19 22:56> Sign Out Provider Sign Out Attestation: I was available for consultation during this patient's emergency department encounter
[2019-07-12 20:41] VITALS: BP 130/86; PULSE 71; RESP 16; O2SAT 97
[2019-07-12] MEDS: TET,DIPH,PERTUSS(ACELL),VAC/PF 0.5 ML SYRINGE IM (21:06)
== END 2019-07-12 21:14 | disposition home or self-care (01) ==
PROVIDERS: Emergency Provider Nurse Practitioner Family; PCP Registered Nurse Diabetes Educator
DX: S61.012A Laceration without foreign body of left thumb without damage to nail, initial encounter (principal); W26.0XXA Contact with knife, initial encounter
CPT/HCPCS: 90471; 99283; 90715

== ENCOUNTER → 2020-03-29 13:41 | Outpatient (CLI) | payer OTHER, SELFPAY ==
--- NOTE | 2020-03-29 13:47 | DI.CT.S_ITS ---
PROCEDURE: CT UE LT WO CON INDICATIONS: Pain in left fingers TECHNIQUE: Noncontrast 1 mm axial sections acquired through the carpal bones, with coronal and sagittal reformats. COMPARISON: [facility], CR, XR HAND 3+ VIEWS LEFT, 03/16/2020, 10:24. FINDINGS: Image quality: Excellent. Bones: No fracture or focal osseous destruction. There is anatomic alignment. Soft tissues: Visualized flexor and extensor tendons appear grossly normal. The kidneys soft tissues and muscles unremarkable. IMPRESSION: Negative examination. If the patient's pain or other symptoms persist, consider further evaluation with MRI Dictated by: Ren Beasley M.D. on 03/29/2020 at 16:04 Approved by: Ren Beasley M.D. on 03/29/2020 at 16:07
== END ==
PROVIDERS: PCP Registered Nurse Diabetes Educator; Referring Provider Orthopaedic Surgery; Visit Provider Orthopaedic Surgery
DX: M79.645 Pain in left finger(s) (principal)
CPT/HCPCS: 73200

== ENCOUNTER 2023-12-27 07:57 | Emergency (ER) | payer OTHER, SELFPAY ==
[2023-12-27 08:06] VITALS: PULSE 87; O2SAT 99
[2023-12-27 08:08] VITALS: BP 178/104; PULSE 86; RESP 18; TEMP 36.7; O2SAT 97; BMI 41.5
--- NOTE | 2023-12-27 08:11 | ED.GENADULT ---
HPI - General Adult General Chief complaint: Urogenital-Female Stated complaint: extreme pain rt side vommiting cant pee Time Seen by Provider: 12/27/23 08:05 Source: patient Mode of arrival: Ambulatory Limitations: no limitations History of Present Illness HPI narrative: 38-year-old female who is here for evaluation of right-sided abdominal/flank pain and also dysuria. She states that the dysuria/urinary urgency/frequency started a couple days ago. Her right-sided flank pain started yesterday and then last evening at about midnight she started to vomit. No fevers. States urinating does not change any of her abdominal discomfort. No rashes. It is somewhat worse with touching. She has had her gallbladder removed but no other abdominal surgeries. She has never had a kidney stone. She has had urinary tract infection in the past and this feels different from that. Despite the stated complaint she states that she can urinate but is having quite a bit of hesitancy and urgency. Related Data Home Medications Medication Instructions Recorded Confirmed albuterol sulfate 2.5 mg/3 mL 3 ml inhalation PRN PRN Shortness 06/08/19 06/08/19 (0.083 %) solution for nebulization Of Breath albuterol sulfate 90 mcg/actuation 1 dose inhalation PRN PRN 06/08/19 06/08/19 aerosol inhaler Shortness Of Breath epinephrine 0.3 mg/0.3 mL 0.3 ml IM PRN PRN Allergic Reaction 06/08/19 06/08/19 injection, auto-injector fluticasone propionate 230 1 puff inhalation BID 06/08/19 06/08/19 mcg-salmeterol 21 mcg/actuation HFA inhaler loratadine 10 mg tablet 10 mg PO DAILY 06/08/19 06/08/19 montelukast 10 mg tablet 10 mg PO DAILY 06/08/19 06/08/19 tiotropium bromide 1.25 1 puff inhalation DAILY 06/08/19 06/08/19 mcg/actuation mist for inhalation Previous Rx's Medication Instructions Recorded cephalexin 500 mg capsule 500 mg PO BID 5 days #10 caps 12/27/23 Allergies Allergy/AdvReac Type Severity Reaction Status Date / Time zolpidem [From Ambien] AdvReac Verified 12/27/23 08:12 Review of Systems Constitutional Constitutional: Reports system reviewed and no additional complaints, except as documented Cardiovascular Cardiovascular: Reports system reviewed and no additional complaints, except as documented Gastrointestinal Gastrointestinal: Reports system reviewed and no additional complaints, except as documented Genitourinary Genitourinary: Reports system reviewed and no additional complaints, except as documented Integumentary/Breasts Skin/Breast: Reports system reviewed and no additional complaints, except as documented Patient History Medical History (Updated 12/27/23 @ 09:53 by Everett Holguin DO) Spinal cord stimulator status Spinal stenosis Degenerative joint disease (DJD) of lumbar spine Chronic back pain Endometriosis Surgical History History of cholecystectomy S/P T&A (status post tonsillectomy and adenoidectomy) H/O spinal fusion Social History Smoking Status: Current every day smoker Smoking Status: Current every day smoker Substance Use Type: does not use Exam Initial Vital Signs Initial Vital Signs: Vital Signs Pulse Rate 87 12/27/23 08:06 Pulse Oximetry 99 12/27/23 08:06 Const General: cooperative, comfortable and No ill appearing HENMT Head: normal to inspection Resp Effort & Inspection: normal respiratory effort Cardio Rate: regular rate GI Inspection: normal to inspection Other: Tender to palpation right-sided flank Back/Spine/Pelvis Back: CVA tenderness right Skin General: no rashes or lesions noted Neuro General: patient alert, patient awake and moves all extremities Extrem General: normal to inspection Course Orders Ordered: ED Orders 12/27/23 08:11 CT kidney ureter bladder (KUB) Stat 12/27/23 08:20 Complete Blood Count AUTO DIFF Stat Comprehensive Metabolic Panel Stat Lipase Stat 12/27/23 09:48 Urine Culture Stat Urine Microscopic Stat Discontinued Medications Sodium Chloride (Normal Saline 0.9%) 1,000 mls @ 1,000 mls/hr IV BOLUS ONE Stop: 12/27/23 09:09 Last Infusion: 12/27/23 09:33 Dose: Infused Documented By: Admin: 12/27/23 08:33 Dose: 1,000 mls/hr Documented By: Ketorolac Tromethamine (Ketorolac 30 Mg/Ml Vial) 30 mg IV NOW ONE Stop: 12/27/23 08:32 Last Admin: 12/27/23 08:36 Dose: 30 mg Documented By: Ondansetron HCl (Ondansetron 4 Mg/2 Ml Inj) 4 mg IV NOW ONE Stop: 12/27/23 08:11 Last Admin: 12/27/23 08:33 Dose: 4 mg Documented By: Vital Signs Vital signs: Vital Signs - 8 hr 12/27/23 08:06 12/27/23 08:08 12/27/23 09:04 Temperature 98.0 F Pulse Rate 87 86 81 Respiratory Rate 18 Blood Pressure 178/104 H Pulse Oximetry 99 97 99 Oxygen Delivery Method Room Air Medical Decision Making Medical Records Medical records reviewed: Yes I reviewed the patient's medical records. Lab Data Lab results reviewed: Yes I reviewed the patient's lab results. 12/27/23 08:20 12/27/23 08:20 Labs: Lab Results 12/27/23 Range/Units 08:20 WBC 15.4 H (4.5-11.0) X10^3/uL RBC 4.86 (4.0-5.2) X10^6/uL Hgb 13.9 (12.0-16.0) g/dL Hct 41.3 (36-46) % MCV 85.1 (80-100) fL MCH 28.6 (26-34) PG MCHC 33.6 (30-36) % RDW 13.8 (11.6-14.8) % Plt Count 370 (150-400) X10^3/uL Neut % (Auto) 70.1 (50-75) % Lymph % (Auto) 20.8 L (25-40) % [place] % (Auto) 5.3 (3-14) % Eos % (Auto) 3.1 (2-4) % Baso % (Auto) 0.7 (0-2) % Neut # (Auto) 62311 H (2738-1831) /uL Lymph # (Auto) 3200 (3750-6759) /uL [place] # (Auto) 800 (0-900) /uL Eos # (Auto) 500 H (0-450) /uL Baso # (Auto) 100 (0-100) /uL Sodium 138 (137-145) mmol/L Potassium 4.3 (3.4-5.1) mmol/L Chloride 107 (98-107) mmol/L Carbon Dioxide 30 (22-32) mmol/L BUN 10 (7-17) mg/dL Creatinine 0.65 (0.52-1.04) mg/dL Estimated GFR > 60 (>60) mL/min BUN/Creatinine Ratio 15.4 (6-22) Glucose 92 (70-100) mg/dL Calcium 9.1 (8.4-10.2) mg/dL Total Bilirubin 0.4 (0.2-1.3) mg/dL AST 21 (14-36) IU/L ALT 20 (<35) IU/L Alkaline Phosphatase 82 (38-126) U/L Total Protein 8.2 (6.3-8.2) g/dL Albumin 4.2 (3.5-5.0) g/dL Globulin 4.0 (1.7-4.1) g/dL Albumin/Globulin Ratio 1.1 (1.0-2.8) Lipase 26 (23-300) U/L Point of Care Testing Test Results Negative Urine Dip Bedside Urine Glucose Negative Bedside Urine Bilirubin - Negative Bedside Urine Ketone - Negative Urine Specific [place] 1.015 Bedside Urine Occult Blood +++ Bedside Urine pH 6.0 Bedside Urine Protein ++ 100 Bedside Urine Urobilinogen - Negative Bedside Urine Nitrite + Positive Bedside Urine Leukocytes +++ 500 Esterase Point of care testing: Point of Care Testing Test Results Negative Urine Dip Bedside Urine Glucose Negative Bedside Urine Bilirubin - Negative Bedside Urine Ketone - Negative Urine Specific [place] 1.015 Bedside Urine Occult Blood +++ Bedside Urine pH 6.0 Bedside Urine Protein ++ 100 Bedside Urine Urobilinogen - Negative Bedside Urine Nitrite + Positive Bedside Urine Leukocytes +++ [address] scan - abdomen/pelvis: Radiologist's Impression: PROCEDURE: CT KIDNEY URETER BLADDER (KUB) INDICATIONS: R sided flank pain concern for stone TECHNIQUE: Axial sections were acquired from the lung bases to the pubic symphysis. Coronal and sagittal reformats were performed. For radiation dose reduction, the following was used: automated exposure control, adjustment of mA and/or kV according to patient size. COMPARISON: Outside Film, CT, CT IVP, 07/04/2021, 10:07. FINDINGS: Image quality: Diagnostic. Lower Chest: No significant findings. URINARY: Right Kidney: No stones or hydronephrosis. Right Ureter: No hydroureter. Left Kidney: No stones or hydronephrosis. Left Ureter: No hydroureter. Bladder: Decompressed, limiting evaluation. No stones. ABDOMEN: Liver: No contour-deforming solid mass. Gallbladder: Surgically absent. Biliary ducts: No biliary dilation. Pancreas: No ductal dilation. Spleen: Size is within normal limits. Adrenal Glands: No adrenal nodules. Stomach and Bowel: Normal colonic caliber, without significant wall thickening. Normal appendix. Peritoneum: No abnormal intraperitoneal fluid. No free air. Ventral Wall: No hernia. Abdominal Nodes: No enlarged retroperitoneal or mesenteric lymph nodes. Vessels: Aorta and inferior vena cava are normal in size. PELVIS: Pelvic Organs: Unremarkable. Pelvic Nodes: Unremarkable. Miscellaneous: No inguinal hernias are seen. Bones: L4-5 posterior spinal fixation discectomy. Partially visualized spinal cord stimulator. IMPRESSION: No obstructing stones or hydronephrosis. No acute findings within the abdomen or pelvis. MDM Narrative Medical decision making narrative: Patient does have a relatively benign exam. She has had her gallbladder removed. Her labs are unremarkable. No leukocytosis. Urinalysis is nitrite positive and given her history this would be consistent with a urinary tract infection. CT scan does not show any signs of ureteral/kidney stone. There was no stranding around the kidney that would make me concern for pyelo. She is afebrile. Tolerating oral intake. Will start her on antibiotics for her urinary tract infection. This was sent to the pharmacy of her choice. No indication for surgical consultation. She was given return precautions. She expressed understanding and agreement. Discharge Plan Departure Patient Disposition: Home Clinical Impression: Urinary tract infection Instructions: DI for Urinary Tract Infection (UTI) Activity Restrictions/Additional Instructions: I do recommend that you take the antibiotics as directed. They were electronically sent to [facility] per your request. Be sure that you were increasing your fluid intake. Return to the emergency department for new symptoms. Prescriptions: New cephalexin 500 mg capsule 500 mg PO BID 5 Days Qty: 10 0RF No Action albuterol sulfate 2.5 mg /3 mL (0.083 %) solution for nebulization 3 ml inhalation PRN PRN (Reason: Shortness Of Breath) montelukast 10 mg tablet 10 mg PO DAILY epinephrine [EpiPen 2-Alejandro] 0.3 mg/0.3 mL auto-injector 0.3 ml IM PRN PRN (Reason: Allergic Reaction) albuterol sulfate [ProAir HFA] 90 mcg/actuation HFA aerosol inhaler 1 dose inhalation PRN PRN (Reason: Shortness Of Breath) loratadine 10 mg tablet 10 mg PO DAILY Advair HFA 230-21 mcg/actuation HFA aerosol inhaler 1 puff inhalation BID Spiriva Respimat 1.25 mcg/actuation mist 1 puff inhalation DAILY Referrals: Chong Snell ARNP [Primary Care Provider] - Stand Alone Forms: Patient Portal/API
[2023-12-27] MEDS: ONDANSETRON 4 MG/2 ML INJ IV (08:33)
[2023-12-27] MEDS: SODIUM CHLORIDE 0.9% 1,000 ML 1000 ML IV (08:33)
[2023-12-27] MEDS: KETOROLAC 30 MG/ML VIAL IV (08:36)
[2023-12-27 08:37] LABS: Add Manual Diff / Slide Review NO; Basophils Absolute Auto 100 /uL (0-100); Basophils Percent Auto 0.7 % (0-2); Eosinophils Absolute Auto 500 /uL (0-450); Eosinophils Percent Auto 3.1 % (2-4); Hematocrit 41.3 % (36-46); Hemoglobin 13.9 g/dL (12.0-16.0); Lymphocytes Absolute Auto 3200 /uL (1100-4500); Lymphocytes Percent Auto 20.8 % (25-40); Mean Corpuscular HGB Conc 33.6 % (30-36); Mean Corpuscular Hemoglobin 28.6 PG (26-34); Mean Corpuscular Volume 85.1 fL (80-100); Monocytes Absolute Auto 800 /uL (0-900); Monocytes Percent Auto 5.3 % (3-14); Neutrophils Absolute Auto 10800 /uL (1500-7000); Neutrophils Percent Auto 70.1 % (50-75); Platelet Count 370 X10^3/uL (150-400); Red Blood Cell Count 4.86 X10^6/uL (4.0-5.2); Red Cell Distribution Width 13.8 % (11.6-14.8); White Blood Cell Count 15.4 X10^3/uL (4.5-11.0)
[2023-12-27 08:44] LABS: Alanine Aminotransferase 20 IU/L (<35); Albumin 4.2 g/dL (3.5-5.0); Albumin Globulin Ratio 1.1 (1.0-2.8); Alkaline Phosphatase 82 U/L (38-126); Aspartate Aminotransferase 21 IU/L (14-36); BUN Creatinine Ratio 15.4 (6-22); Bilirubin Total 0.4 mg/dL (0.2-1.3); Blood Urea Nitrogen 10 mg/dL (7-17); Calcium 9.1 mg/dL (8.4-10.2); Carbon Dioxide 30 mmol/L (22-32); Chloride 107 mmol/L (98-107); Estimated Glomerular Filt Rate > 60 mL/min (>60); Glucose 92 mg/dL (70-100); HEMOLYSIS < 15 (0-50); Lipase 26 U/L (23-300); Potassium 4.3 mmol/L (3.4-5.1); Sodium 138 mmol/L (137-145); Total Protein 8.2 g/dL (6.3-8.2)
[2023-12-27 09:04] VITALS: PULSE 81; O2SAT 99
[2023-12-27 10:14] VITALS: BP 123/62; PULSE 78; RESP 16; O2SAT 98
[2023-12-27 10:26] LABS: Bacteria Urine Few (2-10); Culture Indicated Urine Specimen Cultured; RBC Urine 5-10/HPF (0-5/HPF); Squamous Epithelial Cell Urine 0-1 /HPF (0-5/HPF); Urine Volume 10mL (spun); WBC Urine 30-100/HPF (0-5/HPF)
== END 2023-12-27 10:17 | disposition home or self-care (01) ==
PROVIDERS: Emergency Provider Emergency Medicine; PCP Registered Nurse Diabetes Educator
DX: N39.0 Urinary tract infection, site not specified (principal)
CPT/HCPCS: 36415; 51798; 74176; 80053; 81003; 81015; 81025; 83690; 85025; 87077; 87086; 87186; 96361; 96374; 96375; 99284; J1885; J2405